=== PATIENT | female | born 2000 | race Caucasian/White ===

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

== ENCOUNTER → 2022-01-17 07:46 | Outpatient (CLI) | payer BC, SELFPAY ==
--- NOTE | 2022-01-17 07:53 | CA_ITS ---
FINAL REPORT TECHNIQUE: Grayscale, color Doppler and duplex Doppler ultrasound of the kidneys, aorta and renal arteries was performed. Multiple velocities were measured. CLINICAL HISTORY: .HTN FINDINGS: Aorta velocity: 124 cm/sec Right kidney: 10.4 cm. No evidence of hydronephrosis or mass Right intrarenal RI: 0.6 Right renal artery velocity: 173 cm/sec. Right RAR (Renal artery-Aortic Ratio): 1.4 Left Kidney: 10.3 cm. No evidence of hydronephrosis or mass. Left intrarenal RI: 0.6 Left renal artery velocity: 172 cm/sec. Left RAR (Renal Artery-Aortic Ratio): 1.4 IMPRESSION: No evidence of significant renal artery stenosis. CT angiogram or postcontrast MR angiogram would be more sensitive for evaluation of possible renal artery stenosis. Reviewed, Interpreted and Dictated by Jey Baltazar III, MD Transcribed by Rita Márquez Authenticated and [facility]
== END ==
PROVIDERS: PCP Nurse Practitioner Family; Visit Provider Nurse Practitioner Family
DX: I10 Essential (primary) hypertension (principal)
CPT/HCPCS: 93976

== ENCOUNTER → 2022-02-07 12:22 | Outpatient (CLI) | payer BC, SELFPAY | PROVIDERS: PCP Nurse Practitioner Family; Visit Provider Nurse Practitioner Family | DX: G47.8 Other sleep disorders (principal); R06.83 Snoring; G47.00 Insomnia, unspecified; I10 Essential (primary) hypertension; E66.9 Obesity, unspecified; Z68.39 Body mass index [BMI] 39.0-39.9, adult | CPT/HCPCS: G0399 ==

== ENCOUNTER → 2022-02-18 10:59 | Outpatient (CLI) | payer BC, SELFPAY ==
[2022-03-03 13:50] LABS: Narcolepsy DQA1*01:02 Negative (.); Narcolepsy DQB1*06:02 Negative (.)
== END ==
PROVIDERS: PCP Nurse Practitioner Family; Visit Provider Nurse Practitioner Family
DX: G47.30 Sleep apnea, unspecified (principal); G47.00 Insomnia, unspecified; G47.19 Other hypersomnia; G47.8 Other sleep disorders; R06.83 Snoring; I10 Essential (primary) hypertension; E66.9 Obesity, unspecified; Z68.39 Body mass index [BMI] 39.0-39.9, adult
CPT/HCPCS: 36415; 81383

== ENCOUNTER 2023-05-07 21:09 | Outpatient (CLI) | payer BC, SELFPAY ==
[2023-05-07 18:15] LABS: Microscopic, Urine URINE MICROSCOPIC (MICROSCOPIC)
[2023-05-07 18:23] LABS: Appearance,Urine CLOUDY (Clear); Blood, Urine Negative (Negative); Color,Urine YELLOW (Yellow); Glucose,Urine (UA) Negative (Negative); Ketones,Urine Negative (Negative); Leukocyte Esterase,Urine Negative (Negative); Nitrate,Urine Negative (Negative); Protein,Urine TRACE (Negative); Specific Gravity, Urine >= 1.030 (1.005-1.030)
[2023-05-07 18:25] LABS: Basophils # 0.1 K/mm3 (0-0.2); Basophils % 0.9 % (0.1-2.0); Eosinophils # 0.3 K/mm3 (0.0-0.4); Eosinophils % 3.7 % (0.1-12.0); Hematocrit 44.2 % (37.0-47.0); Hemoglobin 14.5 g/dL (12.2-16.2); Lymphocytes # 1.7 K/mm3 (0.7-4.5); Lymphocytes % 21.3 % (10-50); Mean Corpuscular HGB Conc 32.7 g/dL (31.8-35.4); Mean Corpuscular Hemoglobin 30.2 pg (27.0-31.2); Mean Corpuscular Volume 92.1 fl (81-99); Mean Platelet Volume 8.6 fl (7.4-10.4); Monocytes # 0.5 K/mm3 (0.1-1.0); Monocytes % 6.1 % (1.7-9.3); Neutrophils # 5.5 K/mm3 (1.8-7.8); Neutrophils % 68.1 % (37.0-80.0); Platelet Count 415 K/mm3 (142-424); Red Cell Distribution Width 12.9 % (11.5-17.5)
[2023-05-07 18:27] LABS: Bilirubin,Urine 1+ (Negative)
[2023-05-07 18:30] LABS: Total Protein,Urine Random < 5.0 mg/dL (0.0-12.0)
[2023-05-07 18:54] LABS: Alanine Aminotransferase 37 U/L (12-78); Albumin Level 4.4 g/dl (3.5-5.0); Albumin/Globulin Ratio 1.6 (1.1-1.8); Alkaline Phosphatase 78 U/L (38-126); Anion Gap 14.3 mEq/L (5-15); Aspartate Amino Transferase 31 U/L (14-36); Bilirubin,Total 0.6 mg/dl (0.2-1.3); Blood Urea Nitrogen 8 mg/dl (7-17); Calcium 9.9 mg/dl (8.4-10.2); Carbon Dioxide 27 mmol/L (22.0-30.0); Chloride 103 mmol/L (98-107); Chol/HDL Ratio 3.7 (1-3.5); Cholesterol 168 mg/dl (140-200); Estimated Glomerular Filt Rate 91 ml/min (>60); GFR (African American) 110 ML/MIN (>60); Globulin 2.7 g/dL (1.3-3.2); Glucose 92 mg/dl (74-100); HDL Cholesterol 45 mg/dl (40-60); Potassium 4.3 mmoL/L (3.5-5.1); Sodium 140 mmol/L (136-145); Total Protein,Serum 7.1 g/dl (6.3-8.2); Triglycerides 107 mg/dl (30-150); VLDL Cholesterol 21 mg/dL (0-40)
[2023-05-07 19:03] LABS: Hemoglobin A1C 5.4 % (4.0-6.0)
[2023-05-07 19:12] LABS: 25-OH Vitamin D, Total 29.8 ng/mL (30-100); Direct LDL Cholesterol 89.92 mg/dL (100-129)
[2023-05-07 19:31] LABS: Thyroid Stimulating Hormone 1.28 uIU/mL (0.465-4.68)
[2023-05-07 19:42] LABS: Amorphous Sediment,Urine 2+ /lpf; Bacteria,Urine Trace /lpf
[2023-05-07 19:51] LABS: Vitamin B12 424 pg/mL (239-931)
[2023-05-07 20:22] LABS: Free T4 (Free Thyroxine) 1.16 ng/dl (0.78-2.19)
[2023-05-09 10:11] LABS: Testosterone,Total 63 ng/dL (13-71)
== END 2023-05-07 23:59 ==
LOC: LAB.DROPOF 21:10
PROVIDERS: PCP Nurse Practitioner Family; Visit Provider Nurse Practitioner Family
DX: I10 Essential (primary) hypertension (principal); E55.9 Vitamin D deficiency, unspecified; F41.9 Anxiety disorder, unspecified; E28.2 Polycystic ovarian syndrome; G43.109 Migraine with aura, not intractable, without status migrainosus; G47.33 Obstructive sleep apnea (adult) (pediatric); G47.19 Other hypersomnia; L67.8 Other hair color and hair shaft abnormalities; E66.01 Morbid (severe) obesity due to excess calories; Z68.41 Body mass index [BMI] 40.0-44.9, adult; Z79.899 Other long term (current) drug therapy
CPT/HCPCS: 80053; 80061; 81001; 82306; 82607; 83036; 84156; 84403; 84439; 84443; 85025; 87086

== ENCOUNTER 2023-06-04 07:47 | Outpatient (CLI) | payer BC, SELFPAY ==
--- NOTE | 2023-06-04 08:14 | US_ITS ---
PROCEDURE: US TRANSVAGINAL CLINICAL INDICATION: PCOS COMPARISON: No exams were available for comparison FINDINGS: Transvaginal sonographic images of the pelvis were obtained. UTERUS: 8.5cm x 4.9 cmx 3.9 cm anteverted with a combined endometrial thickness of 8.3mm. LEFT OVARY: 4.4cmx2.6 cmx2.1cm with a volume of 12.5ml. The left ovary has multiple small follicles and appears polycystic. There is a dominant follicle measuring 1.5 cm. RIGHT OVARY: 3.7 cmx 2.9 cmx2.2cm with a volume of 12.5ml. There are multiple small follicles in the right ovary. There is a dominant follicle measuring 1.3 cm. Both ovaries are seen and appear polycystic. Doppler flow to both ovaries are seen. There is a small amount of fluid in the cul-de-sac. IMPRESSION: 1. Anteverted uterus normal in shape and size. The endometrium is normal. 2. Both ovaries are seen and appear polycystic. 3. There is small amount of physiologic fluid within the cul-de-sac. Dictated by: Brijesh Duong MD 06/04/2023 11:12 Brijesh Duong MD in OV 06/04/2023 11:12
== END 2023-06-04 23:59 | disposition home or self-care (01) ==
LOC: RAD 07:47
PROVIDERS: PCP Nurse Practitioner Family; Visit Provider Nurse Practitioner Family
DX: E28.2 Polycystic ovarian syndrome (principal)
CPT/HCPCS: 76830

== ENCOUNTER 2024-05-09 15:31 | Outpatient (CLI) | payer BC, SELFPAY ==
[2024-05-09 17:53] LABS: Microscopic, Urine URINE MICROSCOPIC (MICROSCOPIC)
[2024-05-09 18:02] LABS: Basophils # 0.1 K/mm3 (0-0.2); Basophils % 0.6 % (0.1-2.0); Eosinophils # 0.2 K/mm3 (0.0-0.4); Eosinophils % 2.3 % (0.1-12.0); Hemoglobin 14.5 g/dL (12.2-16.2); Lymphocytes # 1.8 K/mm3 (0.7-4.5); Lymphocytes % 19.9 % (10-50); Mean Corpuscular HGB Conc 33.7 g/dL (31.8-35.4); Mean Corpuscular Hemoglobin 29.2 pg (27.0-31.2); Mean Corpuscular Volume 86.7 fl (81-99); Mean Platelet Volume 10.7 fl (7.4-10.4); Monocytes # 0.5 K/mm3 (0.1-1.0); Monocytes % 5.7 % (1.7-9.3); Neutrophils # 6.3 K/mm3 (1.8-7.8); Neutrophils % 71.3 % (37.0-80.0); Platelet Count 464 K/mm3 (142-424); Red Blood Count 4.96 M/mm3 (4.20-5.40); Red Cell Distribution Width 12.2 % (11.5-17.5); White Blood Count 8.9 K/mm3 (4.8-10.8)
[2024-05-09 18:26] LABS: Hemoglobin A1C 5.2 % (4.0-6.0)
[2024-05-09 18:28] LABS: Albumin Level 4.7 g/dl (3.5-5.0); Chloride 100 mmol/L (98-107); Potassium 4.3 mmoL/L (3.5-5.1); Sodium 136 mmol/L (136-145)
[2024-05-09 18:30] LABS: Blood Urea Nitrogen 10 mg/dl (7-17); Estimated Glomerular Filt Rate 90 ml/min (>60); GFR (African American) 109 ML/MIN (>60)
[2024-05-09 18:31] LABS: Alanine Aminotransferase 33 U/L (12-78); Albumin/Globulin Ratio 1.9 (1.1-1.8); Alkaline Phosphatase 62 U/L (38-126); Anion Gap 12.3 mEq/L (5-15); Aspartate Amino Transferase 23 U/L (14-36); Bilirubin,Total 0.5 mg/dl (0.2-1.3); Calcium 10.4 mg/dl (8.4-10.2); Carbon Dioxide 28 mmol/L (22.0-30.0); Chol/HDL Ratio 3.6 (1-3.5); Cholesterol 161 mg/dl (140-200); Globulin 2.5 g/dL (1.3-3.2); Glucose 99 mg/dl (74-100); HDL Cholesterol 45 mg/dl (40-60); Iron 124 ug/dL (37-170); Total Protein,Serum 7.2 g/dl (6.3-8.2); Triglycerides 168 mg/dl (30-150); VLDL Cholesterol 34 mg/dL (0-40)
[2024-05-09 18:42] LABS: Direct LDL Cholesterol 89.14 mg/dL (100-129)
[2024-05-09 18:49] LABS: Total Iron Binding Capacity 503 ug/dL (265-497)
[2024-05-09 18:50] LABS: 25-OH Vitamin D, Total 37.4 ng/mL (30-100); Appearance,Urine Clear (Clear); Bilirubin,Urine Negative (Negative); Blood, Urine Negative (Negative); Color,Urine Yellow (Yellow); Free T4 (Free Thyroxine) 1.13 ng/dl (0.78-2.19); Glucose,Urine (UA) Negative (Negative); Ketones,Urine Negative (Negative); Leukocyte Esterase,Urine Negative (Negative); Nitrate,Urine Negative (Negative); PH,Urine 5.5 (5.0-8.5); Protein,Urine Negative (Negative); Urobilinogen,Urine 0.2 EU/dl (0.2); WBC,Urine Occasional #/hpf (0-3)
[2024-05-09 18:51] LABS: Bacteria,Urine 1+ /lpf
[2024-05-09 19:02] LABS: Thyroid Stimulating Hormone 1.73 uIU/mL (0.465-4.68)
[2024-05-09 19:06] LABS: Ferritin 10.3 ng/ml (6.24-137)
[2024-05-09 19:15] LABS: HIV Combo NEGATIVE (Negative)
[2024-05-09 19:21] LABS: Hepatitis C Ab Qual. W/ RFX NEGATIVE (Negative); Total Protein,Urine Random < 5.0 mg/dL (0.0-12.0); Vitamin B12 299 pg/mL (239-931)
== END 2024-05-09 23:59 | disposition home or self-care (01) ==
LOC: LAB.DROPOF 05-10 14:48
PROVIDERS: PCP Nurse Practitioner Family; Visit Provider Nurse Practitioner Family
DX: Z11.4 Encounter for screening for human immunodeficiency virus [HIV] (principal); Z11.59 Encounter for screening for other viral diseases; Z13.1 Encounter for screening for diabetes mellitus; Z13.220 Encounter for screening for lipoid disorders; F41.9 Anxiety disorder, unspecified; E28.2 Polycystic ovarian syndrome; G43.109 Migraine with aura, not intractable, without status migrainosus; E66.01 Morbid (severe) obesity due to excess calories; E11.9 Type 2 diabetes mellitus without complications; Z79.84 Long term (current) use of oral hypoglycemic drugs; R41.3 Other amnesia; R53.83 Other fatigue; I10 Essential (primary) hypertension; G47.33 Obstructive sleep apnea (adult) (pediatric); Z68.41 Body mass index [BMI] 40.0-44.9, adult
CPT/HCPCS: 80053; 80061; 81001; 82306; 82607; 82728; 83036; 83540; 83550; 84156; 84439; 84443; 85025; 86803; 87086; 87389